=== PATIENT | male | born 1950 | race Caucasian/White ===

== ENCOUNTER 2020-04-01 16:20 | Emergency (ER) | payer OTHER ==
[2020-04-01] MEDS: 50% Dextrose in Water 50 ML Syringe IVPUSH ONE ×2 (18:25→19:20)
[2020-04-01] MEDS ORDERED: Sodium Chloride 0.9% 1,000 ML IV SCH ×2 (19:15→19:45)
--- NOTE | 2020-04-01 19:59 | EDM.PDOC ---
ED HPI GENERAL MEDICAL PROBLEM - General Chief Complaint: Respiratory Problem Stated Complaint: RESPIRATORY ISSUE Time Seen by Provider: 04/01/20 18:00 Source of Information: Reports: Family History Limitations: Reports: Altered Mental Status - History of Present Illness INITIAL COMMENTS - FREE TEXT/NARRATIVE: Dictated Onset: Gradual Onset Date: 03/31/20 Onset Time: 22:00 Duration: Day(s): Location: Reports: Generalized Improves with: Reports: None Worsens with: Reports: None Associated Symptoms: Reports: Confusion - Related Data Allergies Allergy/AdvReac Type Severity Reaction Status Date / Time No Known Allergies Allergy Verified 04/01/20 20:09 Home Meds: Home Meds Amitriptyline [Elavil] 10 mg PO BEDTIME 04/01/20 [History] Apixaban [Eliquis] 5 mg PO Q12HR 04/01/20 [History] Cholecalciferol (Vitamin D3) [Vitamin D3] 25 mcg PO DAILY 04/01/20 [History] Digoxin 125 mcg PO DAILY 04/01/20 [History] Omeprazole 20 mg PO BIDAC 04/01/20 [History] Simvastatin 0.5 tab PO BEDTIME 04/01/20 [History] carvediloL [Carvedilol] 0.5 tab PO BID 04/01/20 [History] Past Medical History Cardiovascular History: Reports: Hypertension Other Cardiovascular History: on coumadin, INR 2.1 at [facility] one week ago Endocrine/Metabolic History: Reports: Diabetes, Type II ED ROS GENERAL - Review of Systems Review Of Systems: Comprehensive ROS is negative, except as noted in HPI. ED EXAM, GENERAL - Physical Exam Exam: Not Obtained Reason Not Obtained: dictated Course - Vital Signs Last Recorded V/S: Last Vital Signs Temp 37.4 C 04/01/20 17:45 Pulse 90 04/01/20 17:50 Resp 24 H 04/01/20 17:50 BP 77/40 L 04/01/20 20:47 Pulse Ox 96 04/01/20 19:56 - Orders/Labs/Meds Orders: Active Orders 24 hr Category Date Time Status Abdomen Pelvis wo Cont [CT] Stat Exams 04/01/20 20:27 Taken Chest 1V Frontal [CR] Stat Exams 04/01/20 18:10 Taken CULTURE BLOOD [BC] Stat Lab 04/01/20 19:40 Received Labs: Laboratory Tests 0804/01/20 04/01/20 Range/Units 18:07 18:07 18:08 WBC 1.4 L* (4.0-11.0) K/uL RBC 3.65 L (4.50-6.50) M/uL Hgb 12.1 L (13.0-18.0) g/dL Hct 36.6 L (40.0-54.0) % MCV 100 H (76-96) fL MCH 33.2 H (27.0-32.0) pg MCHC 33.1 (31.0-35.0) g/dL RDW 15.2 (11.0-16.0) % Plt Count 62 L (150-400) K/uL MPV 12.0 H (6.0-10.0) fL Neut % (Auto) 86.6 H (45.0-70.0) % Lymph % (Auto) 10.6 L (20.0-40.0) % [place] % (Auto) 2.1 L (3.0-10.0) % Eos % (Auto) 0.0 L (1.0-5.0) % Baso % (Auto) 0.7 H (0.0-0.5) % Neut # (Auto) 1.22 L (2.00-7.50) K/uL Lymph # (Auto) 0.15 L (1.50-4.00) K/uL [place] # (Auto) 0.03 L (0.20-0.80) K/uL Eos # (Auto) 0.00 L (0.04-0.40) K/uL Baso # (Auto) 0.01 L (0.02-0.10) K/uL PT 25.7 H (9.0-11.5) sec INR 2.6 (1.0-3.5) Sodium 140 (136-145) mmol/L Potassium 4.4 (3.5-5.1) mmol/L Chloride 106 (98-107) mmol/L Carbon Dioxide 15.1 L D (21.0-32.0) mmol/L Anion Gap 23.3 H (5.0-15.0) mmol/L BUN 13 D (8-26) mg/dL Creatinine 2.37 H D (0.70-1.30) mg/dL Est Cr Clr Drug Dosing TNP Estimated GFR (MDRD) 27 L (>60) MLS/MIN BUN/Creatinine Ratio 5.5 L (6-25) Glucose 41 L* D (74-100) mg/dL POC Glucose (74-110) mg/dL Lactic Acid (0.4-2.0) mmol/L Calcium 7.9 L (8.5-10.1) mg/dL Total Bilirubin 2.9 H (0.0-1.0) mg/dL AST 36 (15-37) U/L ALT 25 (12-78) U/L Alkaline Phosphatase 70 (46-116) U/L Ammonia (11-32) umol/L Creatine Kinase (21-232) U/L Total Protein 5.2 L (6.4-8.2) g/dL Albumin 1.5 L (3.4-5.0) g/dL Globulin 3.7 (2.2-4.2) g/dL Albumin/Globulin Ratio 0.4 L (0.8-2.0) Urine Color Urine Appearance (CLEAR) Urine pH (5.0-8.0) Ur Specific [place] (1.003-1.030) Urine Protein (NEGATIVE) mg/dL Urine Glucose (UA) (NEGATIVE) mg/dL Urine Ketones (NEGATIVE) mg/dL Urine Occult Blood (NEGATIVE) Urine Nitrite (NEGATIVE) Urine Bilirubin (NEGATIVE) Urine Urobilinogen (0.2-1.0) E.U./dL Ur Leukocyte Esterase (NEGATIVE) Urine RBC /HPF Urine WBC /HPF Ur Squamous Epith Cells /HPF COVID-19 ([facility]) 04/01/20 04/01/20 04/01/20 Range/Units 18:13 18:49 19:02 WBC (4.0-11.0) K/uL RBC (4.50-6.50) M/uL Hgb (13.0-18.0) g/dL Hct (40.0-54.0) % MCV (76-96) fL MCH (27.0-32.0) pg MCHC (31.0-35.0) g/dL RDW (11.0-16.0) % Plt Count (150-400) K/uL MPV (6.0-10.0) fL Neut % (Auto) (45.0-70.0) % Lymph % (Auto) (20.0-40.0) % [place] % (Auto) (3.0-10.0) % Eos % (Auto) (1.0-5.0) % Baso % (Auto) (0.0-0.5) % Neut # (Auto) (2.00-7.50) K/uL Lymph # (Auto) (1.50-4.00) K/uL [place] # (Auto) (0.20-0.80) K/uL Eos # (Auto) (0.04-0.40) K/uL Baso # (Auto) (0.02-0.10) K/uL PT (9.0-11.5) sec INR (1.0-3.5) Sodium (136-145) mmol/L Potassium (3.5-5.1) mmol/L Chloride (98-107) mmol/L Carbon Dioxide (21.0-32.0) mmol/L Anion Gap (5.0-15.0) mmol/L BUN (8-26) mg/dL Creatinine (0.70-1.30) mg/dL Est Cr Clr Drug Dosing Estimated GFR (MDRD) (>60) MLS/MIN BUN/Creatinine Ratio (6-25) Glucose (74-100) mg/dL POC Glucose 60 L (74-110) mg/dL Lactic Acid (0.4-2.0) mmol/L Calcium (8.5-10.1) mg/dL Total Bilirubin (0.0-1.0) mg/dL AST (15-37) U/L ALT (12-78) U/L Alkaline Phosphatase (46-116) U/L Ammonia (11-32) umol/L Creatine Kinase 81 (21-232) U/L Total Protein (6.4-8.2) g/dL Albumin (3.4-5.0) g/dL Globulin (2.2-4.2) g/dL Albumin/Globulin Ratio (0.8-2.0) Urine Color Urine Appearance (CLEAR) Urine pH (5.0-8.0) Ur Specific [place] (1.003-1.030) Urine Protein (NEGATIVE) mg/dL Urine Glucose (UA) (NEGATIVE) mg/dL Urine Ketones (NEGATIVE) mg/dL Urine Occult Blood (NEGATIVE) Urine Nitrite (NEGATIVE) Urine Bilirubin (NEGATIVE) Urine Urobilinogen (0.2-1.0) E.U./dL Ur Leukocyte Esterase (NEGATIVE) Urine RBC /HPF Urine WBC /HPF Ur Squamous Epith Cells /HPF COVID-19 ([facility]) Negative 04/01/20 04/01/20 04/01/20 Range/Units 19:03 19:40 19:40 WBC (4.0-11.0) K/uL RBC (4.50-6.50) M/uL Hgb (13.0-18.0) g/dL Hct (40.0-54.0) % MCV (76-96) fL MCH (27.0-32.0) pg MCHC (31.0-35.0) g/dL RDW (11.0-16.0) % Plt Count (150-400) K/uL MPV (6.0-10.0) fL Neut % (Auto) (45.0-70.0) % Lymph % (Auto) (20.0-40.0) % [place] % (Auto) (3.0-10.0) % Eos % (Auto) (1.0-5.0) % Baso % (Auto) (0.0-0.5) % Neut # (Auto) (2.00-7.50) K/uL Lymph # (Auto) (1.50-4.00) K/uL [place] # (Auto) (0.20-0.80) K/uL Eos # (Auto) (0.04-0.40) K/uL Baso # (Auto) (0.02-0.10) K/uL PT (9.0-11.5) sec INR (1.0-3.5) Sodium (136-145) mmol/L Potassium (3.5-5.1) mmol/L Chloride (98-107) mmol/L Carbon Dioxide (21.0-32.0) mmol/L Anion Gap (5.0-15.0) mmol/L BUN (8-26) mg/dL Creatinine (0.70-1.30) mg/dL Est Cr Clr Drug Dosing Estimated GFR (MDRD) (>60) MLS/MIN BUN/Creatinine Ratio (6-25) Glucose (74-100) mg/dL POC Glucose (74-110) mg/dL Lactic Acid 12.7 H (0.4-2.0) mmol/L Calcium (8.5-10.1) mg/dL Total Bilirubin (0.0-1.0) mg/dL AST (15-37) U/L ALT (12-78) U/L Alkaline Phosphatase (46-116) U/L Ammonia 58 H (11-32) umol/L Creatine Kinase (21-232) U/L Total Protein (6.4-8.2) g/dL Albumin (3.4-5.0) g/dL Globulin (2.2-4.2) g/dL Albumin/Globulin Ratio (0.8-2.0) Urine Color Brown Urine Appearance Slightly cloudy (CLEAR) Urine pH 5.0 (5.0-8.0) Ur Specific [place] >= 1.030 (1.003-1.030) Urine Protein 100 H (NEGATIVE) mg/dL Urine Glucose (UA) Negative (NEGATIVE) mg/dL Urine Ketones Negative (NEGATIVE) mg/dL Urine Occult Blood Large H (NEGATIVE) Urine Nitrite Negative (NEGATIVE) Urine Bilirubin Moderate H (NEGATIVE) Urine Urobilinogen 2.0 H (0.2-1.0) E.U./dL Ur Leukocyte Esterase Negative (NEGATIVE) Urine RBC >100 H /HPF Urine WBC 0-5 H /HPF Ur Squamous Epith Cells Few /HPF COVID-19 ([facility]) 04/01/20 04/01/20 04/01/20 Range/Units 20:47 22:05 22:27 WBC (4.0-11.0) K/uL RBC (4.50-6.50) M/uL Hgb (13.0-18.0) g/dL Hct (40.0-54.0) % MCV (76-96) fL MCH (27.0-32.0) pg MCHC (31.0-35.0) g/dL RDW (11.0-16.0) % Plt Count (150-400) K/uL MPV (6.0-10.0) fL Neut % (Auto) (45.0-70.0) % Lymph % (Auto) (20.0-40.0) % [place] % (Auto) (3.0-10.0) % Eos % (Auto) (1.0-5.0) % Baso % (Auto) (0.0-0.5) % Neut # (Auto) (2.00-7.50) K/uL Lymph # (Auto) (1.50-4.00) K/uL [place] # (Auto) (0.20-0.80) K/uL Eos # (Auto) (0.04-0.40) K/uL Baso # (Auto) (0.02-0.10) K/uL PT (9.0-11.5) sec INR (1.0-3.5) Sodium (136-145) mmol/L Potassium (3.5-5.1) mmol/L Chloride (98-107) mmol/L Carbon Dioxide (21.0-32.0) mmol/L Anion Gap (5.0-15.0) mmol/L BUN (8-26) mg/dL Creatinine (0.70-1.30) mg/dL Est Cr Clr Drug Dosing Estimated GFR (MDRD) (>60) MLS/MIN BUN/Creatinine Ratio (6-25) Glucose (74-100) mg/dL POC Glucose < 20 L* 48 L* 102 (74-110) mg/dL Lactic Acid (0.4-2.0) mmol/L Calcium (8.5-10.1) mg/dL Total Bilirubin (0.0-1.0) mg/dL AST (15-37) U/L ALT (12-78) U/L Alkaline Phosphatase (46-116) U/L Ammonia (11-32) umol/L Creatine Kinase (21-232) U/L Total Protein (6.4-8.2) g/dL Albumin (3.4-5.0) g/dL Globulin (2.2-4.2) g/dL Albumin/Globulin Ratio (0.8-2.0) Urine Color Urine Appearance (CLEAR) Urine pH (5.0-8.0) Ur Specific [place] (1.003-1.030) Urine Protein (NEGATIVE) mg/dL Urine Glucose (UA) (NEGATIVE) mg/dL Urine Ketones (NEGATIVE) mg/dL Urine Occult Blood (NEGATIVE) Urine Nitrite (NEGATIVE) Urine Bilirubin (NEGATIVE) Urine Urobilinogen (0.2-1.0) E.U./dL Ur Leukocyte Esterase (NEGATIVE) Urine RBC /HPF Urine WBC /HPF Ur Squamous Epith Cells /HPF COVID-19 ([facility]) 04/01/20 04/01/20 Range/Units 23:00 23:49 WBC (4.0-11.0) K/uL RBC (4.50-6.50) M/uL Hgb (13.0-18.0) g/dL Hct (40.0-54.0) % MCV (76-96) fL MCH (27.0-32.0) pg MCHC (31.0-35.0) g/dL RDW (11.0-16.0) % Plt Count (150-400) K/uL MPV (6.0-10.0) fL Neut % (Auto) (45.0-70.0) % Lymph % (Auto) (20.0-40.0) % [place] % (Auto) (3.0-10.0) % Eos % (Auto) (1.0-5.0) % Baso % (Auto) (0.0-0.5) % Neut # (Auto) (2.00-7.50) K/uL Lymph # (Auto) (1.50-4.00) K/uL [place] # (Auto) (0.20-0.80) K/uL Eos # (Auto) (0.04-0.40) K/uL Baso # (Auto) (0.02-0.10) K/uL PT (9.0-11.5) sec INR (1.0-3.5) Sodium (136-145) mmol/L Potassium (3.5-5.1) mmol/L Chloride (98-107) mmol/L Carbon Dioxide (21.0-32.0) mmol/L Anion Gap (5.0-15.0) mmol/L BUN (8-26) mg/dL Creatinine (0.70-1.30) mg/dL Est Cr Clr Drug Dosing Estimated GFR (MDRD) (>60) MLS/MIN BUN/Creatinine Ratio (6-25) Glucose (74-100) mg/dL POC Glucose 151 H 117 H (74-110) mg/dL Lactic Acid (0.4-2.0) mmol/L Calcium (8.5-10.1) mg/dL Total Bilirubin (0.0-1.0) mg/dL AST (15-37) U/L ALT (12-78) U/L Alkaline Phosphatase (46-116) U/L Ammonia (11-32) umol/L Creatine Kinase (21-232) U/L Total Protein (6.4-8.2) g/dL Albumin (3.4-5.0) g/dL Globulin (2.2-4.2) g/dL Albumin/Globulin Ratio (0.8-2.0) Urine Color Urine Appearance (CLEAR) Urine pH (5.0-8.0) Ur Specific [place] (1.003-1.030) Urine Protein (NEGATIVE) mg/dL Urine Glucose (UA) (NEGATIVE) mg/dL Urine Ketones (NEGATIVE) mg/dL Urine Occult Blood (NEGATIVE) Urine Nitrite (NEGATIVE) Urine Bilirubin (NEGATIVE) Urine Urobilinogen (0.2-1.0) E.U./dL Ur Leukocyte Esterase (NEGATIVE) Urine RBC /HPF Urine WBC /HPF Ur Squamous Epith Cells /HPF COVID-19 ([facility]) Meds: Medications Discontinued Medications Generic Name Dose Route Start Last Admin Trade Name Quintin PRN Reason Stop Dose Admin Dextrose/Water 25 ml 04/01/20 19:09 04/01/20 19:20 Dextrose 50% In Water IVPUSH 04/01/20 19:10 25 ml ONETIME ONE Administration Dextrose/Water 50 ml 04/01/20 21:50 04/01/20 21:51 Dextrose 50% In Water IVPUSH 04/01/20 21:51 50 ml ONETIME ONE Administration Dextrose/Water 50 ml 04/01/20 22:10 04/01/20 22:10 Dextrose 50% In Water IVPUSH 04/01/20 22:11 50 ml ONETIME ONE Administration Sodium Chloride 1,000 mls @ 999 mls/hr 04/01/20 19:15 04/01/20 18:20 Normal Saline IV 999 mls/hr ASDIRECTED MARBELLA Administration Sodium Chloride 1,000 mls @ 999 mls/hr 04/01/20 19:45 04/01/20 19:47 Normal Saline IV 999 mls/hr ASDIRECTED MARBELLA Administration Piperacillin Sod/Tazobactam 100 mls @ 100 mls/hr 04/01/20 20:00 04/01/20 19:51 Sod 3.375 gm/ Sodium Chloride IV 100 mls/hr Q6H MARBELLA Administration Vancomycin HCl 1 gm/ Sodium 250 mls @ 167 mls/hr 04/01/20 21:25 04/01/20 21:30 Chloride IV 04/01/20 22:54 167 mls/hr ONETIME ONE Administration Dextrose/Sodium Chloride 1,000 mls @ 999 mls/hr 04/01/20 22:15 Dextrose 5%-Normal Saline IV ASDIRECTED MARBELLA Departure - Departure Time of Disposition: 00:40 Disposition: DC/Tfer to [facility] 02 Clinical Impression: Septicemia - Discharge Information Referrals: PCP,None [Primary Care Provider] - Forms: ED Department Discharge Sepsis Event Note (ED) - Evaluation Sepsis Screening Result: Possible Severe Sepsis Risk - My Orders Last 24 Hours: My Active Orders 04/01/20 18:10 Chest 1V Frontal [CR] Stat 04/01/20 19:40 CULTURE BLOOD [BC] Stat 04/01/20 20:27 Abdomen Pelvis wo Cont [CT] Stat - Assessment/Plan Last 24 Hours: My Active Orders 04/01/20 18:10 Chest 1V Frontal [CR] Stat 04/01/20 19:40 CULTURE BLOOD [BC] Stat 04/01/20 20:27 Abdomen Pelvis wo Cont [CT] Stat
[2020-04-01] MEDS ORDERED: Piperacillin/Tazobactam 3.375 GM in Sodium Chloride 0.9% 100 ML IV SCH (20:00)
[2020-04-01] MEDS ORDERED: 50% Dextrose in Water 50 ML Syringe IVPUSH ONE ×2 (21:50→22:10)
[2020-04-01] MEDS ORDERED: Dextrose 5%-0.9% NaCl 1,000 ML IV SCH (22:15)
--- NOTE | 2020-04-01 22:52 | ER ---
REASON FOR EMERGENCY ROOM VISIT: Altered mental status. 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 He was brought in by ambulance with altered mental status and profound weakness. According to the patient's , last evening, he was walking and he was somewhat unsteady with the use of his walker at home. He slipped and stumbled and nearly fell completely to the floor, but scraped his right flank area on the side of the walker. She states that before this happened, he still had some conversational speech, but she states that his speech was funny throughout most of the evening and that continued throughout the morning and into the day today. The states that he was not himself, that he was moving very slowly and was very stiff. Because of these changes and not improving, she called the ambulance. The brassiere cup mold cutter arrived and noted that he was very slow to respond verbally, but did follow commands and moved all 4 extremities. His blood pressure initially was in the 80s/40s, but when it was rechecked while in transport, he was up into the 100/60 range. The states that he has not had any fever or chills and he has not had any cough, shortness of breath or chest pain. He has not had any abdominal pain or any specific other complaints. It is important to note that he was drinking liquids today with very little solid food, but she states that she felt he was quite dehydrated. His most recent hospitalization was 1 month ago when he was hospitalized at [facility] in [place] for an upper GI bleed. According to his , that was attributed to his Coumadin. They told her that he had some dilated veins in his lower esophagus, presumably this was a varices, but they did not actually identify active bleeding at that time. He was switched over from Coumadin to Eliquis. With regard to his cirrhosis, she states that this goes all the way back into the 70s, but it has been reasonably stable according to the . His hospitalization in [place] was only 4 days in duration. Since then, he was doing reasonably well until yesterday. PAST MEDICAL HISTORY: Significant for: 1. Cirrhosis as described above possibly secondary to Agent [place] exposure. 2. Chronic atrial fibrillation, on anticoagulation. 3. History of buttock abscess. He has no history of stroke, myocardial infarction, or renal disease. MEDICATIONS: Include carvedilol 6.25 mg 1/2 tablet p.o. b.i.d., cholecalciferol, omeprazole 20 mg p.o. b.i.d., digoxin 0.125 mg 1 p.o. daily, simvastatin 20 mg 1/2 tablet p.o. at bedtime, amitriptyline 10 mg 1 p.o. at bedtime, and Eliquis 5 mg p.o. q.12 hours. ALLERGIES: NONE TO MEDICATIONS. REVIEW OF SYSTEMS: Pertinent positives and negatives as listed in the HPI. PHYSICAL EXAMINATION: He was initially quite obtunded, but he did answer most questions appropriately. He was oriented to the day of the week and location. He did move all 4 extremities, albeit slowly and somewhat weak on command. Blood pressure was 103/96, temperature 99.4, heart rate is 95, O2 sats 95%, respiratory rate 20. HEENT: Head is normocephalic. There is no obvious scleral icterus. Oropharynx is very dry. NECK: Supple. No adenopathy. No JVD. CHEST: He does have a few scattered rhonchi. There is no wheezing. There was reasonably good air exchange. CARDIAC: Regular rate without murmur. ABDOMEN: Nondistended and obese. Bowel sounds are decreased but present. He has no hepatosplenomegaly or palpable mass. His right flank, however, shows that he has an area of a superficial abrasion measuring 2 cm to 3 cm in diameter, but he has a significant obvious area of cellulitis measuring roughly 24 x 18 inches with some dependent edema in the right flank. There is no crepitus. This area is not tender. RECTAL: Not performed. EXTREMITIES: He has palpable foot pulses but these are difficult to detect because of chronic lower extremity edema, which is symmetrical. NEUROLOGIC: See above. SKIN: No other rashes apart from the cellulitis. LABORATORY DATA: His glucose on admission was 43 rather and he was given 1/2 an amp of D50. It was repeated and his repeat glucose after the D50 was 60. We went ahead and gave him a second amp. The rest of his labs show that his CBC shows a significant, severe leukopenia with a WBC of 1400. His hemoglobin is 12.2. His platelet count is 62,000. His CMP shows potassium, sodium and chloride are all normal. His creatinine is elevated at 2.37 with an anion gap of 23 and a CO2 content of 15.6. His calcium is 7.9, but his albumin is only 1.5. His serum lactate is 13 and his ammonia is 58. His total bilirubin is 2.9. His alkaline phosphatase, AST and ALT are all normal. Urinalysis shows that his urine is very concentrated with a large amount of occult blood. Micro analysis is pending at this time. Further emergency room course, because of his altered mental status, even though he was hypoglycemic, we went ahead and did a CT scan of his head given his past history and that did not show any acute bleed or any acute changes. Because of the marked cellulitis in his right flank and his cirrhosis, we went ahead and scanned his abdomen, which showed some thickening of his right colon and his stomach and ascites, but nothing to explain his apparent septic picture. I initially called [facility] in [place] and spoke to the hospitalist Dr. Montoya, who said that he probably could not take him because he did not have adequate business machines teacher back up. I then contacted [facility] and spoke to Dr. Oseguera, the business machines teacher at [facility] and we discussed his history. He agreed that he was septic. I had gone ahead and gave him Zosyn 3.375 g and 1 g of vancomycin. Altogether, he has had nearly 2 L of normal saline for resuscitation. He has generally remained hemodynamically stable, but he has dipped a few times transiently below 80 with regard to his systolic pressure. IMPRESSION: 1. Sepsis with shock. 2. Cirrhosis with hepatic insufficiency and possible encephalopathy. 3. Hypoglycemia, possibly related to cirrhosis. 4. Possible acute renal failure secondary to sepsis. 5. Leukopenia, possibly secondary to sepsis. PLAN: After discussion, Dr. Oseguera agreed to take him, accept him in transfer. We will send him by helicopter. I discussed the situation with his . She is aware of the risks, goals, and alternatives, and this includes risks of due to accidents in transport, etc. All questions were answered. She understands and agrees with this plan. CELIA/DONG /[id number]
--- NOTE | 2020-04-03 12:11 | CT ---
Date of Service: 04/01/20 Clinical Data: POSSIBLE STROKE UNENHANCED BRAIN CT: Multislice axial acquisition was performed. No priors. There is diffuse cerebral atrophy. There are periventricular lucencies bilaterally consistent with small vessel ischemic change. No masses or mass effect. No intracranial hemorrhage. No evidence of acute or subacute infarct. No osseous abnormalities. IMPRESSION: No acute intracranial abnormalities. [id number] [facility]
--- NOTE | 2020-04-03 12:21 | CT ---
Date of Service: 04/01/20 Clinical Data: abdominal distension UNENHANCED ABDOMEN AND PELVIC CT: Multislice acquisition through the abdomen and pelvis without IV or oral contrast was performed. No priors. There is breathing motion artifact. There is beam hardening with streak artifact produced by the patient's arms. There are moderate-sized bilateral pleural effusions. There is atelectasis and consolidation in both lung bases. Pneumonia should be considered. The unenhanced liver appears normal. No focal hepatic lesions. The gallbladder is not visualized. The spleen appears normal. The pancreas is mildly atrophic, otherwise unremarkable. The right and left adrenals appear normal. The right and left kidneys appear normal. No nephrocalcinosis or nephrolithiasis. No hydronephrosis or hydroureter. There are scattered air-fluid levels in the small bowel. No distended loops of small bowel. There is also mild mural thickening noted within the cecum and ascending colon. Enterocolitis should be considered. There is free fluid noted within the pelvis and abdomen consistent with ascites. There is also fluid within a right inguinal hernia. There is a Betts catheter noted within the bladder. Bladder appears grossly normal. No free air. No dilated loops of bowel. No adenopathy. No aortic aneurysm. There is pleural thickening with calcified pleural plaque overlying the left hemidiaphragm. Consider prior asbestos exposure or prior empyema. There is also thickening of the gastric cardia, upper GI may be helpful to further evaluate. No other significant findings. [id number] [facility]
--- NOTE | 2020-04-04 09:12 | CR ---
Date of Service: 04/01/20 Clinical Data: CVA AP CHEST: Comparison is made to a prior exam dated 02/26/20. The heart size is stable. The patient has taken a poor inspiration. The pulmonary vasculature does appear more prominent than on the prior exam suggesting pulmonary venous congestion. This may be related to the poor inspiration. There is a persistent moderate size left pleural effusion. There are densities in both lower lungs consistent with basilar atelectasis or infiltrate. Pneumonia should be considered. No pneumothorax. [id number] [facility]
== END 2020-04-02 00:40 ==
LOC: LB.ED 16:20
DX: A41.9 Sepsis, unspecified organism (principal); R65.21 Severe sepsis with septic shock; K74.60 Unspecified cirrhosis of liver; E11.649 Type 2 diabetes mellitus with hypoglycemia without coma; D72.819 Decreased white blood cell count, unspecified; I48.91 Unspecified atrial fibrillation; I10 Essential (primary) hypertension; Z20.828 Contact with and (suspected) exposure to other viral communicable diseases; Z79.01 Long term (current) use of anticoagulants; Z79.899 Other long term (current) drug therapy
CPT/HCPCS: 36415; 51702; 70450; 71045; 74176; 80053; 81001; 82140; 82550; 82962; 83605; 85025; 85610; 87040; 87077; 87186; 87635; 93005; 96361; 96365; 96367; 96375; 96376; 99285; A0425; A0429; J2543; J3370; J7050; U0002